=== PATIENT | female | born 1995 | race Caucasian/White ===

== ENCOUNTER → 2022-04-14 10:56 | Outpatient (CLI) | payer OTHER, SELFPAY ==
[2022-04-14 14:08] LABS: Urine N gonorrhoeae NOT DETECTED
[2022-04-14 14:12] LABS: Urine Chlamydia NOT DETECTED
== END ==
PROVIDERS: Visit Provider Obstetrics & Gynecology
DX: Z34.81 Encounter for supervision of other normal pregnancy, first trimester (principal); Z3A.12 12 weeks gestation of pregnancy
CPT/HCPCS: 87491; 87591

== ENCOUNTER → 2022-05-06 11:04 | Outpatient (CLI) | payer OTHER, SELFPAY ==
[2022-05-06 12:04] LABS: Appearance Urine UA CLEAR; Bilirubin Urine UA NEGATIVE (NEGATIVE); Color Urine UA YELLOW; Glucose Urine UA NEGATIVE (Negative); Ketones Urine UA NEGATIVE (NEGATIVE); Leukocyte Esterase Urine UA NEGATIVE (NEGATIVE); Nitrite Urine UA NEGATIVE (Negative); Occult Blood Urine UA NEGATIVE (Negative); Protein Urine UA NEGATIVE (Negative); Specific Gravity Urine UA <=1.005 (1.000-1.035); Urobilinogen Urine UA 0.2 E.U./dL (0.2)
[2022-05-06 12:06] LABS: pH Urine UA 6.5 (4.5-8.0)
[2022-05-06 12:10] LABS: Add Manual Diff / Slide Review NO; Basophils Absolute Auto 0 /uL (0-100); Basophils Percent Auto 0.1 % (0-2); Eosinophils Absolute Auto 100 /uL (0-450); Eosinophils Percent Auto 0.8 % (2-4); Hematocrit 38.5 % (36-46); Hemoglobin 13.2 g/dL (12.0-16.0); Lymphocytes Absolute Auto 1500 /uL (1100-4500); Mean Corpuscular HGB Conc 34.2 % (30-36); Mean Corpuscular Hemoglobin 28.2 PG (26-34); Mean Corpuscular Volume 82.4 fL (80-100); Monocytes Absolute Auto 500 /uL (0-900); Monocytes Percent Auto 5.4 % (3-14); Neutrophils Absolute Auto 7400 /uL (1500-7000); Neutrophils Percent Auto 77.7 % (50-75); Platelet Count 196 X10^3/uL (150-400); Red Blood Cell Count 4.67 X10^6/uL (4.0-5.2); Red Cell Distribution Width 13.9 % (11.6-14.8); White Blood Cell Count 9.6 X10^3/uL (4.5-11.0)
[2022-05-06 12:58] LABS: Hepatitis B Surface Antigen NEGATIVE s/c (NEGATIVE)
[2022-05-06 16:08] LABS: HIV 1 & 2 Ab/Ag 4th Gen Combo NEGATIVE (NEGATIVE); Hep C Virus Ab w/Reflex Quant NEGATIVE s/c (NEGATIVE)
[2022-05-07 07:35] LABS: RPR Screen Non Reactive (Non Reactive)
[2022-05-07 08:10] LABS: Varicella IgG Antibody 664 index (Immune >165)
== END ==
PROVIDERS: Referring Provider Obstetrics & Gynecology; Visit Provider Obstetrics & Gynecology
DX: Z34.81 Encounter for supervision of other normal pregnancy, first trimester (principal)
CPT/HCPCS: 36415; 80055; 81003; 86787; 86803; 86850; 86900; 86901; 87086; 87389

== ENCOUNTER → 2022-05-17 16:04 | Outpatient (CLI) | payer OTHER, SELFPAY ==
[2022-05-21 22:48] LABS: AFP, Serum 49.5 ng/mL (.); Estriol, Free 0.84 ng/mL (.); Inhibin A, Dimeric 107.33 pg/mL (.); Inhibin A, MoM 0.66 (.); Maternal Ethnicity Caucasian (.); Maternal Weight 141 lbs (.); Number of Fetuses No (.); OSBR Risk 1 IN 6704 (.); Results Report (.); Test Results *Screen Negative* (.); hCG, MoM 0.36 (.); hCG, Serum 13432 mIU/mL (.)
== END ==
PROVIDERS: Referring Provider Obstetrics & Gynecology; Visit Provider Obstetrics & Gynecology
DX: Z34.02 Encounter for supervision of normal first pregnancy, second trimester (principal); Z3A.16 16 weeks gestation of pregnancy
CPT/HCPCS: 36415; 82105; 82677; 84702; 86336

== ENCOUNTER → 2022-06-09 16:21 | Outpatient (CLI) | payer OTHER, SELFPAY ==
--- NOTE | 2022-06-09 16:22 | DI.US.S_ITS ---
PROCEDURE: US OB >= 14 WEEKS FETUS INDICATIONS: 20 WEEK ANATOMY SCAN OUTSIDE/PRIOR DATING DATA: Last menstrual period (LMP): 01/18/2022. LMP-based estimated date of delivery (EDI): 10/25/2022. First dating scan (date and location): 06/09/2022. Estimated date of delivery (EDI) from first dating scan: 10/25/2022. The calculations are made using the clinical EDI of 10/25/2022. TECHNIQUE: Real-time scanning was performed of the fetus, with image documentation and biometric measurements. COMPARISON: None. FINDINGS: General: A single living intrauterine gestation is present. Presentation: Breech. Placenta: Placental position is anterior, without previa. Amniotic fluid index: 14.3 cm, normal range is 5-24 cm. Single deepest vertical pocket is 4.6 cm. heart rate: 143 beats per minute. Maternal cervical canal: 4.7 cm long. Normal lower limit is 2.5 cm. biometrics: Biparietal diameter: 4.6 cm, 20 weeks 1 day Head circumference: 17.4 cm, 20 weeks 0 days Abdominal circumference: 15.5 cm, 20 weeks 5 days Femur length: 3.3 cm, 20 weeks 1 day Clinically estimated gestational age: 20 weeks 2 days Composite gestational age from present scan: 20 weeks 2 days Estimated weight and percentile: 350 g, 51 percentile Anatomic survey: Neuro: Ventricles are non-dilated at less than 10 mm. Cisterna magna is normal at 3-11 mm. Cerebellum is normal in size and morphology. Nuchal skin fold: Normal at less than 6 mm between 14-21 weeks gestational age. Face: Nose and lips, facial profile are normal. Spine: No evidence for spina bifida. Heart: 4-chambered heart is present, with normal ventricular outflow tracts. Diaphragm: Diaphragm is intact. Stomach: Left-sided stomach is present. Kidneys: No hydronephrosis. Normal is less than 5 mm in 2nd trimester, less than 7 mm in 3rd trimester. Cord: 3-vessel cord has orthotopic insertion. Bladder: Normal in size. Extremities: All 4 extremities identified. IMPRESSION: 1. [place] living intrauterine at 20 weeks 2 days based on today's ultrasound. This is concordant with the prior ultrasound. There is expected interval growth. 2. Normal placenta and amniotic fluid. 3. Normal and complete anatomic survey. We strive to produce accurate, complete, and clear reports of imaging services. To assist us in improving patient care, this report was composed using standard report templates and voice recognition software. Therefore, it may contain abnormal punctuation, insertions and/or omissions. Occasional wrong-word or sound-alike substitutions may occur. Though we review the report and make efforts to correct it, we do recommend that the report be read carefully in proper context to recognize any text inaccuracies. Dictated by: Sukhwinder Espinoza M.D. on 06/10/2022 at 8:29 Approved by: Sukhwinder Espinoza M.D. on 06/10/2022 at 8:52
== END ==
PROVIDERS: Referring Provider Obstetrics & Gynecology; Visit Provider Obstetrics & Gynecology
DX: Z34.82 Encounter for supervision of other normal pregnancy, second trimester (principal); Z3A.20 20 weeks gestation of pregnancy
CPT/HCPCS: 76811

== ENCOUNTER → 2022-07-23 08:45 | Outpatient (CLI) | payer OTHER, SELFPAY ==
[2022-07-23 10:53] LABS: GTT (PREG) 1 Hour PP 50gm Dose 129 mg/dL (76-139)
== END ==
PROVIDERS: Referring Provider Obstetrics & Gynecology; Visit Provider Obstetrics & Gynecology
DX: Z34.82 Encounter for supervision of other normal pregnancy, second trimester (principal); Z3A.26 26 weeks gestation of pregnancy
CPT/HCPCS: 36415; 82950; 85014; 85018

== ENCOUNTER → 2022-10-03 14:55 | Outpatient (CLI) | payer OTHER, SELFPAY ==
[2022-10-04 11:19] LABS: Strep Grp B PCR NEG for Grp B Strep
== END ==
PROVIDERS: Visit Provider Physician Assistant Medical
DX: Z34.83 Encounter for supervision of other normal pregnancy, third trimester (principal)
CPT/HCPCS: 87653

== ENCOUNTER 2022-10-21 06:47 | Inpatient (IN) | payer OTHER, SELFPAY ==
--- NOTE | 2022-10-21 07:12 | PM.OBHP.1 ---
OB HPI Date/Time Date of admission: 10/21/22 Date Patient Seen: 10/21/22 Time Patient Seen: 07:07 History of Present Condition Chief complaint: obs : 3 Para: 3 Estimated Date of Delivery: 10/25/22 Estimated Gestational Age (weeks): 39.3 Narrative: Hanny Duval is a 27 year old female G2 now P2002 at 39wks 3days who came in for evaluation of labor pushing with her partner at her side. 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 CNM arrived to a pink crying baby girl in arms of FOB and Hanny stunned, but happy in bed. Vaginal bleeding scant. Vagina and perineum inspected and intact. History of Present care: good care, initiated at week # (12), number of visits (8) and pounds weight gain (31) Dating criteria: LMP confirmed by 1st trimester US Ultrasounds: none [facility] Medical History (Updated 10/11/22 @ 09:36 by David Darby MD) Alpha thalassemia silent carrier Chicken pox Eczema (~2017) GERD (gastroesophageal reflux disease) (~2015) HSV-1 infection Migraine headache Pectus excavatum Surgical History (Updated 05/12/22 @ 20:23 by Ayana Gutierrez) Anesthesia History of surgery (~2011) [place] teeth extracted Family History (Updated 03/09/22 @ 10:19 by Connie Finnegan RN) Brother Pectus excavatum Social History marital status: number of children: 1 household members: spouse and children lives independently: Yes housing: [facility] ([facility]) pets and animals: Yes education level: college (Associate's degree x2) occupational status: unemployed current occupational exposures/hazards: No special johnson needs: No travel history: recent (domestic, [place]) seatbelt use: always helmet use: Yes water heater temp set < 120 deg: Yes working smoke detector in home: Yes fire extinguisher in home: Yes carbon monox detector in home: Yes firearms in home: Yes firearms unloaded and locked: Yes do you feel safe at home: Yes Smoking Status: Former smoker (social smoker, quit when w/ 1st child) second hand exposure: No alcohol intake: former (2-3/week when not ) substance use type: does not use during the past year weight has: remained stable (back to pre- weight) well-balanced diet: rarely or never daily servings fruits/ve-1 caffeine: Yes Type(s) of exercise: resistance training (rowing machine) frequency: 5-6 times per week duration: < 15 minutes/day Meds Home Medications and Allergies Home Medications Medication Instructions Recorded Confirmed Type prenat.vits,bessie,oqn-smuu-qbydk 1 tab PO DAILY 03/09/22 10/18/22 History valacyclovir 500 mg tablet 500 mg PO DAILY #90 tabs 10/03/22 10/18/22 Rx (Valtrex) Allergies Allergy/AdvReac Type Severity Reaction Status Date / Time No Known Drug Allergies Allergy Unverified 10/18/22 10:11
--- NOTE | 2022-10-21 07:29 | PM.OBHP.IH.1 ---
OB HPI Date/Time Date of admission: 10/21/22 Date Patient Seen: 10/21/22 Time Patient Seen: 07:07 History of Present Condition Chief complaint: obs EDI Calculator Estimated Delivery Date Method Current WG Current Estimate 10/25/22 LMP (Certain) 39w 3d Other Estimates 10/23/22 Ultrasound #1 39w 5d Estimated Gestational Age (weeks): 39.3 : 2 Para: 2 Narrative: Hanny Duval is a 27 year old female G2 now P2002 at 39wks 3days who came in for evaluation of labor pushing with her partner at her side. 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 CNM arrived to a pink crying baby girl in arms of FOB and Hanny stunned, but happy in bed. Fluid was meconium stained, Apgars 9/9, no resuscitation needed. Vaginal bleeding scant. Vagina and perineum inspected and intact. EBL- 100mL. care: good care, initiated at week # (12), number of visits (9) and pounds weight gain (34) Dating criteria OB: LMP confirmed by 1st trimester US Ultrasounds: normal mid trimester US Obstetrical complications: none Medical complications OB: none Preadmission Labs Last OB Lab Results: Blood Type A Positive 05/06/22 11:13 Antibody Screen Negative 05/06/22 11:13 Hematocrit 36.0 % (36-46) 07/23/22 09:02 Hemoglobin 12.0 g/dL (12.0-16.0) 07/23/22 09:02 Hepatitis B Surface Antigen Negative s/c (NEGATIVE) 05/06/22 11:13 Hepatitis C Antibody Negative s/c (NEGATIVE) 05/06/22 11:13 Rubella Antibody 131.0 IU/mL (>15) 05/06/22 11:13 Varicella-Zoster IgG Antibody 664 index (Immune >165) 05/06/22 11:13 Glucose 1 Hour 129 mg/dL (76-139) 07/23/22 09:02 Group B Streptococcus (PCR) Neg for grp b strep 10/03/22 14:55 Prior (ies) Past Pregnancies Del. Date GA/Weeks Labor Lgth Wt Sex Route Outcome Anesthesia Place Delv Breastfeed Preg Comp Name 04/15/21 39.5 9 3.26 kg Male vaginal live - full term epidural [place], [place] still going as of 03/09/22 other Todd Delivery Date: 04/15/21 Last Updated by: Connie Finnegan RN 1st trimester bleeding w/ no clear cause Evaluation Evaluation Comments: 4 minutes of external monitoring prior to the : FHR 120bpm, moderate variability during 2 contractions. [facility] Medical History Alpha thalassemia silent carrier Chicken pox Eczema (~2017) GERD (gastroesophageal reflux disease) (~2015) HSV-1 infection Migraine headache Pectus excavatum Surgical History Anesthesia History of surgery (~2011) [place] teeth extracted Family History Brother Pectus excavatum Social History marital status: number of children: 1 household members: spouse and children lives independently: Yes housing: [facility] ([facility]) pets and animals: Yes education level: college (Associate's degree x2) occupational status: unemployed current occupational exposures/hazards: No special johnson needs: No travel history: recent (domestic, [place]) seatbelt use: always helmet use: Yes water heater temp set < 120 deg: Yes working smoke detector in home: Yes fire extinguisher in home: Yes carbon monox detector in home: Yes firearms in home: Yes firearms unloaded and locked: Yes do you feel safe at home: Yes Smoking Status: Former smoker (social smoker, quit when w/ 1st child) second hand exposure: No alcohol intake: former (2-3/week when not ) substance use type: does not use during the past year weight has: remained stable (back to pre- weight) well-balanced diet: rarely or never daily servings fruits/ve-1 caffeine: Yes Type(s) of exercise: resistance training (rowing machine) frequency: 5-6 times per week duration: < 15 minutes/day Meds Home Medications and Allergies Home Medications Medication Instructions Recorded Confirmed Type prenat.vits,bessie,aay-clls-rgzqs 1 tab PO DAILY 03/09/22 10/18/22 History valacyclovir 500 mg tablet 500 mg PO DAILY #90 tabs 10/03/22 10/18/22 Rx (Valtrex) Allergies Allergy/AdvReac Type Severity Reaction Status Date / Time No Known Drug Allergies Allergy Unverified 10/18/22 10:11 Review of Systems Review of Systems ROS: Yes All systems reviewed with the patient and are negative except as otherwise documented OB Exam Vital signs Blood Pressure: 134/73 Pulse Rate: 88 Temperature: 97.3 F Resp Effort & Inspection: normal respiratory effort and able to speak in complete sentences Auscultation: clear to auscultation bilaterally Cardio Rate: regular rate Rhythm: regular rhythm Other: Fundud firm @ u-2, lochia scant. Vagina and perineum inspected and intact. Assessment and Plan Assessment and Plan Assessment and Plan narrative: A: Precititous NSVB HSVII with no signs of lesions at delivery Perinuem intact No indication for antibiotics P: Admit, routine orders. Notified primary OB/. Anticipate d/c to home tomorrow.
[2022-10-21] MEDS: IBUPROFEN 600 MG TABLET PO ×3 (07:39→21:55)
[2022-10-21 07:43] VITALS: BP 134/73; PULSE 88; TEMP 36.3
[2022-10-21 09:06] VITALS: BP 124/71
[2022-10-22] MEDS: IBUPROFEN 600 MG TABLET PO (03:49)
== END 2022-10-22 12:30 | disposition home or self-care (01) | DRG 832 ==
PROVIDERS: Admitting Provider Obstetrics & Gynecology; Referring Provider Obstetrics & Gynecology; Visit Provider Obstetrics & Gynecology
DX: O62.3 Precipitate labor (principal); O98.52 Other viral diseases complicating childbirth; Z3A.39 39 weeks gestation of pregnancy; Z37.0 Single live birth; B00.9 Herpesviral infection, unspecified
CPT/HCPCS: 59050; G0379

== ENCOUNTER → 2023-09-22 16:51 | Outpatient (CLI) | payer OTHER, SELFPAY ==
--- NOTE | 2023-09-22 16:52 | DI.US.S_ITS ---
PROCEDURE: US OB <= 14 WEEKS FETUS INDICATIONS: dating and viability OUTSIDE/PRIOR DATING DATA: Last menstrual period (LMP): 07/18/2024 LMP-based estimated date of delivery (EDI): 04/24/2024 First dating scan (date and location): 09/22/2023 Estimated date of delivery (EDI) from first dating scan: 04/25/2024 TECHNIQUE: Real-time scanning was performed of the fetus and maternal pelvic organs, with image documentation. Endovaginal scanning was also performed to better visualize the fetus and maternal ovaries. COMPARISON: None. FINDINGS: Embryo: Intrauterine gestational sac is seen with yolk sac and pole. [place]-rump length is 2.0 cm compatible with an estimated gestational age of 8 weeks 4 days. Heart rate: 169 beats per minute Maternal organs: Ovaries are unremarkable IMPRESSION: Single live intrauterine . size is concordant with clinical dates. Approved by: Alfredo Yang M.D. on 09/23/2023 at 21:44
== END ==
PROVIDERS: Referring Provider Obstetrics & Gynecology; Visit Provider Obstetrics & Gynecology
DX: Z34.81 Encounter for supervision of other normal pregnancy, first trimester (principal); Z3A.08 8 weeks gestation of pregnancy
CPT/HCPCS: 76801

== ENCOUNTER → 2023-10-11 16:05 | Outpatient (CLI) | payer OTHER, SELFPAY ==
[2023-10-11 17:54] LABS: Add Manual Diff / Slide Review NO; Basophils Absolute Auto 0 /uL (0-100); Basophils Percent Auto 0.2 % (0-2); Eosinophils Absolute Auto 100 /uL (0-450); Eosinophils Percent Auto 1.1 % (2-4); Hematocrit 37.2 % (36-46); Hemoglobin 12.2 g/dL (12.0-16.0); Lymphocytes Absolute Auto 2500 /uL (1100-4500); Mean Corpuscular HGB Conc 32.7 % (30-36); Mean Corpuscular Hemoglobin 26.4 PG (26-34); Mean Corpuscular Volume 80.7 fL (80-100); Monocytes Absolute Auto 600 /uL (0-900); Monocytes Percent Auto 4.9 % (3-14); Neutrophils Absolute Auto 8000 /uL (1500-7000); Neutrophils Percent Auto 71.8 % (50-75); Platelet Count 204 X10^3/uL (150-400); Red Blood Cell Count 4.61 X10^6/uL (4.0-5.2); White Blood Cell Count 11.2 X10^3/uL (4.5-11.0)
[2023-10-12 18:10] LABS: Hepatitis B Surface Antigen NEGATIVE s/c (NEGATIVE)
[2023-10-12 18:49] LABS: HIV 1 & 2 Ab/Ag 4th Gen Combo NEGATIVE (NEGATIVE); Hep C Virus Ab w/Reflex Quant NEGATIVE s/c (NEGATIVE)
[2023-10-13 02:08] LABS: RPR Screen Non Reactive (Non Reactive)
[2023-10-13 08:36] LABS: Varicella IgG Antibody 936 index (Immune >165)
== END ==
PROVIDERS: Referring Provider Obstetrics & Gynecology; Visit Provider Obstetrics & Gynecology
DX: Z34.80 Encounter for supervision of other normal pregnancy, unspecified trimester (principal)
CPT/HCPCS: 36415; 80055; 86787; 86803; 86850; 86900; 86901; 87389

== ENCOUNTER → 2023-12-04 08:54 | Outpatient (CLI) | payer OTHER, SELFPAY ==
--- NOTE | 2023-12-04 08:55 | DI.US.S_ITS ---
PROCEDURE: US OB >= 14 WEEKS FETUS INDICATIONS: 20 week anatomy scan OUTSIDE/PRIOR DATING DATA: Last menstrual period (LMP): 07/18/2024. LMP-based estimated date of delivery (EDI): 04/24/2024. First dating scan (date and location): 09/22/2023. Estimated date of delivery (EDI) from first dating scan: 04/25/2024. The calculations are made using the working EDI of 04/27/2024. TECHNIQUE: Real-time scanning was performed of the fetus, with image documentation and biometric measurements. Endovaginal scanning: No COMPARISON: [facility], , OB >= 14 WEEKS FETUS, 06/09/2022, 16:34. FINDINGS: General: A single living intrauterine gestation is present. Presentation: Transverse right. Placenta: Placental position is posterior , without previa. Amniotic fluid index: 13.3 cm, normal range is 5-24 cm. Single deepest vertical pocket is 4.1 cm. heart rate: 155 beats per minute. Maternal cervical canal: 2.7 cm long. Normal lower limit is 2.5 cm. biometrics: Biparietal diameter: 4.4 cm, 19 week 2 day Head circumference: 16.6 cm, 19 week 2 day Abdominal circumference: 14.2 cm, 19 week 4 day Femur length: 2.9 cm, 18 week 6 day Clinically estimated gestational age: 19 week 5 day Composite gestational age from present scan: 19 week 2 day Estimated weight and percentile: 281 g, 21 percentile Anatomic survey: Neuro: Ventricles are non-dilated at less than 10 mm. Cisterna magna is normal at 3-11 mm. Cerebellum is normal in size and morphology. Nuchal skin fold: Normal at less than 6 mm between 14-21 weeks gestational age. Face: Nose and lips, facial profile are normal. Spine: No evidence for spina bifida. Heart: 4-chambered heart is present, with normal ventricular outflow tracts. Diaphragm: Diaphragm is intact. Stomach: Left-sided stomach is present. Kidneys: No hydronephrosis. Normal is less than 5 mm in 2nd trimester, less than 7 mm in 3rd trimester. Cord: 3-vessel cord has orthotopic insertion. Bladder: Normal in size. Extremities: All 4 extremities identified. IMPRESSION: Single live intrauterine consistent with 19 week 2 day gestation Approved by: Janak Walker M.D. on 12/04/2023 at 21:56
== END ==
PROVIDERS: Referring Provider Obstetrics & Gynecology; Visit Provider Obstetrics & Gynecology
DX: Z34.82 Encounter for supervision of other normal pregnancy, second trimester (principal); Z3A.19 19 weeks gestation of pregnancy
CPT/HCPCS: 76811

== ENCOUNTER → 2024-01-27 09:37 | Outpatient (CLI) | payer OTHER, SELFPAY ==
[2024-01-27 09:56] LABS: Hemoglobin 10.9 g/dL (12.0-16.0)
[2024-01-27 11:23] LABS: GTT (PREG) 1 Hour PP 50gm Dose 93 mg/dL (76-139)
== END ==
PROVIDERS: Referring Provider Obstetrics & Gynecology; Visit Provider Obstetrics & Gynecology
DX: Z34.80 Encounter for supervision of other normal pregnancy, unspecified trimester (principal); Z13.1 Encounter for screening for diabetes mellitus; Z13.0 Encounter for screening for diseases of the blood and blood-forming organs and certain disorders involving the immune mechanism
CPT/HCPCS: 36415; 82950; 85014; 85018; 87086

== ENCOUNTER → 2024-03-27 08:19 | Outpatient (CLI) | payer OTHER, SELFPAY ==
[2024-03-28 13:43] LABS: Strep Grp B PCR NEG for Grp B Strep
== END ==
PROVIDERS: Visit Provider Obstetrics & Gynecology
DX: Z36.85 Encounter for antenatal screening for Streptococcus B (principal)
CPT/HCPCS: 87653

== ENCOUNTER 2024-04-14 03:08 | Inpatient (IN) | payer OTHER, SELFPAY ==
[2024-04-14 03:33] VITALS: BP 132/80
--- NOTE | 2024-04-14 03:39 | PM.OBHP.IH.1 ---
OB HPI Date/Time Date of admission: 04/14/24 Date Patient Seen: 04/14/24 Time Patient Seen: 03:30 History of Present Condition Chief complaint: labor EDI Calculator Estimated Delivery Date Method Current WG Current Estimate 04/24/24 LMP (Certain) 38w 4d Other Estimates 04/29/24 Ultrasound #1 37w 6d Narrative: Patient here with spontaneous labor. Membranes still intact. care: good care Dating criteria OB: LMP confirmed by 2nd trimester US Ultrasounds: normal mid trimester US Obstetrical complications: none Medical complications OB: none Preadmission Labs Last OB Lab Results: Blood Type A Positive 10/11/23 16:30 Antibody Screen Negative 10/11/23 16:30 Hct 33.0 % (36-46) L 01/27/24 09:41 Hgb 10.9 g/dL (12.0-16.0) L 01/27/24 09:41 Hep Bs Antigen Negative s/c (NEGATIVE) 10/11/23 16:30 Hepatitis C Antibody Negative s/c (NEGATIVE) 10/11/23 16:30 Rubella Antibody 99.0 IU/mL (>15) 10/11/23 16:30 VZV IgG Antibody 936 index (Immune >165) 10/11/23 16:30 Glucose 1 Hr 50 gm 93 mg/dL (76-139) 01/27/24 10:44 Group B Strep (PCR) Neg for grp b strep 03/27/24 08:19 Glucose Tolerance Testin hr Prior (ies) Past Pregnancies Del. Date GA/Weeks Labor Lgth Wt Sex Route Outcome Anesthesia Place Delv Breastfeed Preg Comp Name 04/15/21 39.5 9 7 lb 3 oz Male vaginal live - full term epidural [place], [place] still going as of 03/09/22 other Todd 10/21/22 39.3 3 8 lb 4 oz Female vaginal live - full term none IH Still going as of 09/05/23 none Eliah Delivery Date: 04/15/21 Last Updated by: Connie Finnegan RN 1st trimester bleeding w/ no clear cause Delivery Date: 10/21/22 Last Updated by: Connie Finnegan RN precipitous delivery Evaluation Evaluation Baseline heart rate: 135 Variability: Average (6-10) monitor accelerations: Present Monitor Decelerations: Absent Uterine Contraction Intensity: Moderate Dilation (cm): 7 [facility] Medical History (Updated 04/10/24 @ 11:15 by David Darby MD) Precipitous delivery Congenital pectus excavatum Chicken pox GERD (gastroesophageal reflux disease) (~2015) Alpha thalassemia silent carrier HSV-1 infection Migraine headache Surgical History Anesthesia History of surgery (~2011) [place] teeth extracted Family History (Updated 09/05/23 @ 13:12 by Connie Finnegan RN) Brother Pectus excavatum Grandmother A-fib Hypertension Tachycardia Social History marital status: number of children: 2 household members: spouse and children lives independently: Yes caregiver/support person: Yes housing: [facility] ([facility]) pets and animals: Yes (dog) education level: college (Associate's degree x2) occupational status: unemployed current occupational exposures/hazards: No special johnson needs: No travel history: recent (domestic) other: Planning move back to [place] later this year seatbelt use: always helmet use: Yes water heater temp set < 120 deg: Yes working smoke detector in home: Yes fire extinguisher in home: Yes carbon monox detector in home: Yes firearms in home: Yes firearms unloaded and locked: Yes do you feel safe at home: Yes Smoking Status: Never smoker second hand exposure: No alcohol intake: former (not since before 2nd ) substance use type: does not use during the past year weight has: other (back to pre- weight) well-balanced diet: rarely or never daily servings fruits/ve-4 caffeine: Yes Type(s) of exercise: walking, weight lifting and resistance training (rowing machine) frequency: 5-6 times per week duration: < 15 minutes/day Meds Home Medications and Allergies Home Medications Medication Instructions Recorded Confirmed Type vit no.95-ferrous 1 tab PO DAILY 04/14/24 04/14/24 History fumarate 28 mg-folic acid 800 mcg tablet () Allergies Allergy/AdvReac Type Severity Reaction Status Date / Time No Known Drug Allergies Allergy Verified 04/14/24 03:45 OB Exam Vital signs Blood Pressure: 126/80 Pulse Rate: 97 Assessment and Plan Assessment and Plan Assessment and Plan narrative: 28 yo G3 at 38w4d here with spontaneous labor, 6-7 cm. complicated by breech positioning in 3rd trimester - vertex on US at last visit. GBS negative. -anticipate Time-Based Coding :: 30 minutes spent with patient and on the chart (including review of chart, obtaining history, exam, reviewing outside data, placing orders, documenting exam and treatment plan, and counseling patient) on 04/14.
[2024-04-14 03:45] VITALS: BP 126/80; PULSE 97
[2024-04-14 03:46] LABS: Add Manual Diff / Slide Review NO; Basophils Absolute Auto 0 /uL (0-100); Basophils Percent Auto 0.5 % (0-2); Eosinophils Absolute Auto 100 /uL (0-450); Eosinophils Percent Auto 1.3 % (2-4); Hemoglobin 10.6 g/dL (12.0-16.0); Lymphocytes Absolute Auto 2200 /uL (1100-4500); Lymphocytes Percent Auto 31.2 % (25-40); Mean Corpuscular HGB Conc 32.3 % (30-36); Mean Corpuscular Hemoglobin 23.3 PG (26-34); Mean Corpuscular Volume 72.2 fL (80-100); Monocytes Absolute Auto 600 /uL (0-900); Monocytes Percent Auto 8.8 % (3-14); Neutrophils Absolute Auto 4200 /uL (1500-7000); Neutrophils Percent Auto 58.2 % (50-75); Platelet Count 241 X10^3/uL (150-400); Red Blood Cell Count 4.57 X10^6/uL (4.0-5.2); Red Cell Distribution Width 16.2 % (11.6-14.8); White Blood Cell Count 7.2 X10^3/uL (4.5-11.0)
[2024-04-14 04:06] VITALS: BP 126/80
--- NOTE | 2024-04-14 05:37 | PM.OBPRVD ---
Labor & Delivery Delivery date: 04/14/24 Delivery Time: 05:13 Intrapartal Events: None Cervical ripening method: none Induction method: none Delivery augmentation: rupture of membranes Delivery monitor: external FHT Route of delivery: L&D Laceration Description: None Estimated blood loss (mL): 200 Anesthesia Type: None Complications: none Narrative: 28 yo G3 now P3 who presented in spontaneous labor at 38w4d. uncomplicated except for breech positioning until 37 weeks. AROM was performed to facilitate delivery. Patient was unmedicated. She pushed over one contraction. She delivered a vigorous male over an intact perineum. There was delayed cord clamping for 20 minutes. Following cord clamping, placenta delivered spontaneously. She declined pitocin. Bleeding was minimal. Uterine tone firm was external fundal massage. Plan for aftercare: Routine care
[2024-04-14] MEDS: IBUPROFEN 600 MG TABLET PO ×2 (06:12→17:06)
--- NOTE | 2024-04-15 07:43 | PM.OBDS.1 ---
Discharge Providers Provider Date of admission: 04/14/24 03:08 Discharge Date: 04/15/24 Primary care physician: Doctor Rachel MD Consults: 04/14/24 03:22 Consult to Anesthesiology Urgent Comment: Consulting Provider: Anesthesiologist Reason for consultation: Epidural 04/15/24 05:36 Consult to Cage/Vault Supervisor Routine Comment: Discharge provider: Ashley Toure MD Summary Hospital Course Date Patient Seen: 04/15/24 Time Patient Seen: 07:45 Diagnoses: Term Hospital Course: Patient presented in spontaneous labor and bore a vigorous male infant unmedicated shortly after admission. She is well. Minimal cramping and bleeding. She desires discharge today. Peripartum Data Delivery Method: Natural Vaginal Laceration Description: None complications: none Status at Discharge Cognitive/behavioral status at discharge: oriented Functional status at discharge: independent ambulation Overall status at discharge: patient is back to baseline Time Spent with Patient Time attestation: Total time spent providing and/or coordinating discharge services: 31 minutes Time spent: Greater than 30 minutes Objective Labs 04/14/24 03:30 Exam Narrative Exam Narrative: NAD, breathing easily. Fundus at umbilicus. Discharge Plan Discharge Plan Patient Disposition: Home Discharge orders & Medications Prescriptions: Continued PNV cmb#95-ferrous fumarate-FA [] 28 mg iron- 800 mcg Tablet 1 tab PO DAILY Follow up/Referrals: Doctor Ramos MD [Primary Care Provider] - Visit Report/Discharge Packet Stand Alone Forms: Patient Portal/API, Stroke Signs & Symptoms Discharge Data Primary Care Provider: Doctor Rachel
[2024-04-15] MEDS: PRENATAL VIT,CALC/IRON/FOLIC 1 TABLET 1 TAB PO (09:13)
[2024-04-15 10:18] VITALS: BP 126/80; PULSE 97; TEMP 36.6
== END 2024-04-15 09:55 | disposition home or self-care (01) | DRG 807 ==
PROVIDERS: Admitting Provider Student in an Organized Health Care Education/Training Program; Referring Provider Obstetrics & Gynecology; Visit Provider Obstetrics & Gynecology
DX: O80 Encounter for full-term uncomplicated delivery (principal); Z37.0 Single live birth; Z3A.38 38 weeks gestation of pregnancy
CPT/HCPCS: 36415; 59025; 59050; 85025; 86850; 86900; 86901; G0379